=== PATIENT | female | born 1945 | race Caucasian/White ===

== ENCOUNTER → 2020-04-29 | Outpatient (CLI) | payer MEDICARE ==
--- NOTE | 2020-04-29 12:26 | Diagnostic Imaging Report ---
Exam: Bone mineral density study. History: Osteopenia. Comparison: None Discussion: Evaluation of the left hip and lumbar spine was performed utilizing DEXA Hologic bone densitometer. The study is technically adequate. Left hip total bone mineral density: 0.817gm/cm2, T-score is -1.0, Z-score is 0.9. Left hip femoral neck bone mineral density: 0.741gm/cm2, T-score is -1.0, Z-score is 1.2. Lumbar spine total bone mineral density:1.024gm/cm2, T-score is-0.2, Z-score is 2.3. Impression: 1. Normal bone mineral density of the left hip, fracture risk is not increased. 2. Normal bone mineral density of the lumbar spine, fracture risk is not increased. Least significant change (LSC) for bone mineral density as provided by marinator is 0.023 g/cm2 for lumbar spine and 0.027 g/cm2 for total hip. 10 -year fracture risk per WHO Fracture Risk Assessment Tool (FRAX) for: Not reported because all T-scores at or above -1.0 The patient's fracture risk is compared to an age-matched control. Medical evaluation for secondary causes of low bone bone mineral density may be appropriate. Correlate clinically for the necessity and timing of the next bone mineral density study. Signed by: Dr. Ciro Vicente M.D. on 04/29/2020 12:23 PM
== END ==
LOC: DX 10:35
PROVIDERS: ATTEND Family Medicine
DX: Z13.820 Encounter for screening for osteoporosis (principal)
CPT/HCPCS: 77080

== ENCOUNTER → 2020-12-24 | Day surgery (SDC) | payer MEDICARE ==
[2020-12-21 10:12] LABS: BASOPHILS # (AUTO) 0.1 (0.0-0.1); BASOPHILS % 0.7 % (0.0-1.0); EOSINOPHILS # (AUTO) 0.2 (0.0-0.4); HEMOGLOBIN 13.4 g/dL (12.0-16.0); LYMPHOCYTES # (AUTO) 1.6 (1.0-3.2); LYMPHOCYTES % 22.3 % (18.0-39.1); MEAN CORPUSCULAR HEMOGLOBIN 28.8 pg (28-32); MEAN CORPUSCULAR HGB CONC 33.5 g/dL (31-35); MONOCYTES # (AUTO) 0.6 (0.2-0.8); MONOCYTES % 8.7 % (4.4-11.3); NEUTROPHILS # (AUTO) 4.5 (2.1-6.9); PLATELET COUNT 237 x10e3/uL (140-360); RED BLOOD COUNT 4.65 x10e6/uL (3.6-5.1); RED CELL DISTRIBUTION WIDTH 13.3 % (11.7-14.4)
[~2020-12-24] MED LIST: ATACAND16 MG PO; BENEFIBER1 EAC1 PO; LIDOCAINE HCL 2% LOCAL INJ 5 ML SDV VIAL INJ ONE; PANTOPRAZOLE SO40 MG PO; POVIDONE IODINE 0.05% 0.05 % ML PO ONE; PRO BIOTIC PO; PROPOFOL IV EMULSION 10 MG/ML 20 ML VIAL ONE; SLO FE PO; VIT D3 PO; ZETIA10 MG PO
[2020-12-24 13:08] VITALS: BP 110/60
== END | disposition home or self-care (01) ==
LOC: OR 09:03
PROVIDERS: ATTEND Internal Medicine
DX: Z12.11 Encounter for screening for malignant neoplasm of colon (principal); D12.4 Benign neoplasm of descending colon; D12.5 Benign neoplasm of sigmoid colon; K57.30 Diverticulosis of large intestine without perforation or abscess without bleeding; R14.0 Abdominal distension (gaseous); G62.9 Polyneuropathy, unspecified; E78.5 Hyperlipidemia, unspecified; K31.84 Gastroparesis; I12.9 Hypertensive chronic kidney disease with stage 1 through stage 4 chronic kidney disease, or unspecified chronic kidney disease; N18.31 Chronic kidney disease, stage 3a; Z88.8 Allergy status to other drugs, medicaments and biological substances; Z01.810 Encounter for preprocedural cardiovascular examination; Z01.812 Encounter for preprocedural laboratory examination; Z20.822 Contact with and (suspected) exposure to COVID-19; Z85.3 Personal history of malignant neoplasm of breast; Z80.0 Family history of malignant neoplasm of digestive organs
CPT/HCPCS: 36415; 45385; 85025; 93005; J2001; J2704; U0002

== ENCOUNTER 2023-07-21 09:50 | Observation (INO) | payer MEDICARE ==
[~2023-07-21] VITALS: Ht 149.9 cm; Wt 68.0 kg
[~2023-07-21 09:50] MED LIST changes: -LIDOCAINE HCL 2% LOCAL INJ 5 ML SDV VIAL INJ ONE; -POVIDONE IODINE 0.05% 0.05 % ML PO ONE; -PROPOFOL IV EMULSION 10 MG/ML 20 ML VIAL ONE
[2023-07-21] MEDS ORDERED: SODIUM CHLORIDE FLUSH 10 ML SYR IV PRN (10:45)
[2023-07-21 10:53] LABS: BASOPHILS % 0.3 % (0.0-1.0); EOSINOPHILS # (AUTO) 0.2 (0.0-0.4); HEMOGLOBIN 11.2 g/dL (12.0-16.0); LYMPHOCYTES % 16.8 % (18.0-39.1); MEAN CORPUSCULAR HEMOGLOBIN 25.3 pg (28-32); MEAN CORPUSCULAR HGB CONC 31.1 g/dL (31-35); MEAN CORPUSCULAR VOLUME 81.4 fL (81-99); MONOCYTES # (AUTO) 0.5 (0.2-0.8); MONOCYTES % 7.6 % (4.4-11.3); NEUTROPHILS # (AUTO) 4.3 (2.1-6.9); NEUTROPHILS % 71.6 % (38.7-80.0); PLATELET COUNT 195 x10e3/uL (140-360); RED BLOOD COUNT 4.42 x10e6/uL (3.6-5.1); RED CELL DISTRIBUTION WIDTH 17.8 % (11.7-14.4); WHITE BLOOD COUNT 6.02 x10e3/uL (4.8-10.8)
[2023-07-21 11:10] LABS: ALANINE AMINOTRANSFERASE 22 IU/L (0-55); ALBUMIN 3.9 g/dL (3.5-5.0); ALBUMIN/GLOBULIN RATIO 1.3 (0.8-2.0); ALKALINE PHOSPHATASE 72 IU/L (40-150); ANION GAP 16.3 mmol/L (8-16); BILIRUBIN,TOTAL 0.6 mg/dL (0.2-1.2); BLOOD UREA NITROGEN 12 mg/dL (7-26); BUN/CREATININE RATIO 9 (6-25); CALCIUM 9.7 mg/dL (8.4-10.2); CARBON DIOXIDE 22 mmol/L (22-29); CHLORIDE 107 mmol/L (98-107); CREATININE, SERUM 1.29 mg/dL (0.57-1.11); EST GLOMERULAR FILTRATION RATE 42 ML/MIN (>=60); GLUCOSE 88 mg/dL (74-118); POTASSIUM 4.3 mmol/L (3.5-5.1); SODIUM 141 mmol/L (136-145)
[2023-07-21 11:22] LABS: TROPONIN I < 0.001 ng/mL (0-0.300)
[2023-07-21] MEDS ORDERED: ASPIRIN 81 MG CHEW TAB PO ONE ×2 (13:45)
[2023-07-21] MEDS ORDERED: SODIUM CHLORIDE FLUSH 10 ML SYR INJ PRN (13:45)
[2023-07-21] MEDS ORDERED: ONDANSETRON HCL INJ 2MG/ML 2ML 2 MG/ML VIAL IV PRN (13:45)
[2023-07-21 14:45] VITALS: BP 161/64; PULSE 54; RESP 18; TEMP 98; O2SAT 97
[2023-07-21 16:08] VITALS: BP 148/70; PULSE 59; RESP 18; TEMP 98.2; O2SAT 97
[2023-07-21 16:50] VITALS: BP 148/70; PULSE 59; RESP 18; TEMP 98.2; O2SAT 97
[2023-07-21 17:44] LABS: CREATINE KINASE 78 IU/L (29-168)
[2023-07-21 18:08] LABS: TROPONIN I < 0.001 ng/mL (0-0.300)
[2023-07-21] MEDS ORDERED: MELATONIN 3 MG TAB PO PRN (19:15)
[2023-07-21] MEDS ORDERED: DOCUSATE SODIUM 100 MG CAP PO PRN (19:15)
[2023-07-21] MEDS ORDERED: ACETAMINOPHEN 325 MG TAB PO PRN (19:15)
[2023-07-21] MEDS ORDERED: SIMETHICONE 80 MG CHEW PO PRN (19:15)
[2023-07-21] MEDS ORDERED: METOPROLOL TARTRATE INJ 1 MG/ML VIAL IV PRN (19:15)
[2023-07-21] MEDS ORDERED: ALBUTEROL/IPRATROPIUM 3 ML NEB NEB PRN (19:15)
[2023-07-21 20:00] VITALS: BP 148/70; PULSE 59; RESP 18; TEMP 98.2; O2SAT 97
[2023-07-21 20:15] VITALS: BP 147/53; PULSE 56; RESP 18; TEMP 97.7; O2SAT 99
[2023-07-21] MEDS ORDERED: ATORVASTATIN 20 MG TAB PO SCH (21:00)
[2023-07-22 00:01] VITALS: BP 133/57; PULSE 59; RESP 18; TEMP 97.5; O2SAT 100
[2023-07-22 04:00] VITALS: BP 128/58; PULSE 57; RESP 18; TEMP 97.8; O2SAT 100
[2023-07-22 06:24] LABS: BASOPHILS % 0.4 % (0.0-1.0); EOSINOPHILS # (AUTO) 0.2 (0.0-0.4); EOSINOPHILS % 3.5 % (0.0-6.0); HEMATOCRIT 33.3 % (34.2-44.1); HEMOGLOBIN 10.6 g/dL (12.0-16.0); LYMPHOCYTES # (AUTO) 1.3 (1.0-3.2); LYMPHOCYTES % 29.2 % (18.0-39.1); MEAN CORPUSCULAR HEMOGLOBIN 25.4 pg (28-32); MEAN CORPUSCULAR HGB CONC 31.8 g/dL (31-35); MEAN CORPUSCULAR VOLUME 79.9 fL (81-99); MONOCYTES # (AUTO) 0.4 (0.2-0.8); MONOCYTES % 9.1 % (4.4-11.3); NEUTROPHILS # (AUTO) 2.6 (2.1-6.9); NEUTROPHILS % 56.9 % (38.7-80.0); PLATELET COUNT 184 x10e3/uL (140-360); RED BLOOD COUNT 4.17 x10e6/uL (3.6-5.1); RED CELL DISTRIBUTION WIDTH 17.9 % (11.7-14.4); WHITE BLOOD COUNT 4.52 x10e3/uL (4.8-10.8)
[2023-07-22 06:45] LABS: TROPONIN I 0.008 ng/mL (0-0.300)
[2023-07-22 07:17] LABS: ALBUMIN 3.5 g/dL (3.5-5.0); ALBUMIN/GLOBULIN RATIO 1.3 (0.8-2.0); BILIRUBIN,TOTAL 0.7 mg/dL (0.2-1.2); CALCIUM 9.1 mg/dL (8.4-10.2); CREATININE, SERUM 1.23 mg/dL (0.57-1.11); TOTAL PROTEIN 6.2 g/dL (6.5-8.1)
[2023-07-22] MEDS ORDERED: PANTOPRAZOLE SOD 40 MG TABEC PO SCH (07:30)
[2023-07-22 08:40] VITALS: BP 130/68; PULSE 52; RESP 16; TEMP 97.7; O2SAT 99
[2023-07-22] MEDS ORDERED: ASPIRIN 81 MG ENTERIC COATED PO SCH (09:00)
[2023-07-22] MEDS ORDERED: MECLIZINE HCL12.5 MG PO (09:48)
[2023-07-22] MEDS ORDERED: ATORVASTATIN CA20 MG PO (09:53)
[2023-07-22] MEDS ORDERED: ASPIRIN EC81 MG PO (09:53)
[2023-07-22] MEDS ORDERED: MECLIZINE HCL 12.5 MG TAB PO SCH (14:00)
[2023-07-22] MEDS ORDERED: ENOXAPARIN SOD INJ 40 MG/0.4 ML SYR SC SCH ×2 (17:00)
== END 2023-07-22 11:01 | disposition home or self-care (01) ==
LOC: ER 10:41 → ERHOLD 13:43 → MED/SURG 14:45
PROVIDERS: ADMIT Internal Medicine; ATTEND Internal Medicine
DX: R07.89 Other chest pain (principal); R91.1 Solitary pulmonary nodule; K44.9 Diaphragmatic hernia without obstruction or gangrene; R00.1 Bradycardia, unspecified; I12.9 Hypertensive chronic kidney disease with stage 1 through stage 4 chronic kidney disease, or unspecified chronic kidney disease; N18.9 Chronic kidney disease, unspecified; E66.9 Obesity, unspecified; Z68.30 Body mass index [BMI] 30.0-30.9, adult; E78.5 Hyperlipidemia, unspecified; Z88.8 Allergy status to other drugs, medicaments and biological substances; Z11.52 Encounter for screening for COVID-19; Z79.82 Long term (current) use of aspirin; Z79.899 Other long term (current) drug therapy; Z86.73 Personal history of transient ischemic attack (TIA), and cerebral infarction without residual deficits; Z85.3 Personal history of malignant neoplasm of breast; Z92.21 Personal history of antineoplastic chemotherapy
CPT/HCPCS: 36415 ×2; 71046; 71250; 80053 ×2; 82550 ×2; 83880; 84484 ×2; 85025 ×2; 93005 ×2; 93306; 99284; G0378 ×2; S0164; U0002